=== PATIENT | female | born 1990 | race Caucasian/White ===

== ENCOUNTER 2017-05-09 11:00 | Emergency (ER) | payer OTHER ==
[~2017-05-09] VITALS: Ht 157.5 cm; Wt 94.8 kg
[~2017-05-09 11:00] MED LIST: BACTRIM,SEPT1 TABLET PO; ENDOCET 5-3251 EACH PO; HYDROCODON-ACE1 EAC7 PO; KEFLEX500 MG PO; Motrin PO; Natalcare Rx,Pramile PO; Percocet 5/325,Endoc PO; SUBUTEX8 MG SL; ZOFRAN4 MG PO
[2017-05-09] MEDS ORDERED: METHADONE5 MG PO (11:31)
[2017-05-09] MEDS ORDERED: ADDERALL30 MG PO (11:32)
[2017-05-09] MEDS ORDERED: TYLENOL EXTRA500 MG PO (11:33)
[2017-05-09] MEDS ORDERED: NAPROSYN500 MG PO (12:47)
[2017-05-09] MEDS ORDERED: TRAMADOL HCL50 MG PO (12:47)
[2017-05-09 13:01] VITALS: BP 155/89
== END 2017-05-09 13:03 | disposition home or self-care (01) ==
LOC: EME 11:00
DX: S60.221A Contusion of right hand, initial encounter (principal); M79.601 Pain in right arm; W18.30XA Fall on same level, unspecified, initial encounter; Y93.E6 Activity, residential relocation; F17.200 Nicotine dependence, unspecified, uncomplicated
CPT/HCPCS: 73090; 73130; 99281; 99284; J1885

== ENCOUNTER 2017-08-25 10:10 | Emergency (ER) | payer OTHER ==
[~2017-08-25] VITALS: Ht 157.5 cm; Wt 97.6 kg
[~2017-08-25 10:10] MED LIST changes: +ADDERALL30 MG PO; +METHADONE5 MG PO; +NAPROSYN500 MG PO; +TRAMADOL HCL50 MG PO; +TYLENOL EXTRA500 MG PO
[2017-08-25 10:15] VITALS: BP 158/93
[2017-08-25] MEDS ORDERED: MOTRIN600 MG PO (11:08)
[2017-08-25] MEDS ORDERED: FLEXERIL10 MG PO (11:08)
== END 2017-08-25 11:27 | disposition home or self-care (01) ==
LOC: EME 10:10
DX: M62.838 Other muscle spasm (principal); V49.50XA Passenger injured in collision with unspecified motor vehicles in traffic accident, initial encounter; Y92.410 Unspecified street and highway as the place of occurrence of the external cause; F17.200 Nicotine dependence, unspecified, uncomplicated
CPT/HCPCS: 99281; 99284